=== PATIENT | female | born 1940 | race Two or more races ===

== ENCOUNTER → 2017-12-02 | Emergency (ER) | payer OTHER ==
[~2017-12-02] VITALS: Ht 175.3 cm; Wt 72.6 kg
[~2017-12-02] MED LIST: CATAFLAM50 MG PO; PRAVASTATIN SOD10 MG; ZOLOFT100 MG
== END | disposition home or self-care (01) ==
LOC: ER 18:00
DX: R14.3 Flatulence (principal)